=== PATIENT | female | born 1965 | race Two or more races ===

== ENCOUNTER → 2021-12-27 | Emergency (ER) | payer OTHER ==
[~2021-12-27] MED LIST: HYZAAR 100-121 UDTAB PO; NABUMETONE500 MG PO; PERCOCET 5/3251 TAB PO; SYNTHROID175 MCG PO; SYNTHROID200 MCG PO
== END | disposition home or self-care (01) ==
LOC: ER 11:25
DX: R00.2 Palpitations (principal); I10 Essential (primary) hypertension

== ENCOUNTER 2022-08-17 08:55 | Day surgery (SDC) | payer OTHER ==
[~2022-08-17] VITALS: Ht 165.1 cm; Wt 106.1 kg
[~2022-08-17 08:55] MED LIST changes: +IRBESARTAN-HCT1 EAC1 PO; +METFORM PO; +SYNTHROID137 MCG PO
== END 2022-08-17 16:30 | disposition home or self-care (01) ==
LOC: CIR.AMB 08:55
PROVIDERS: ATTEND Obstetrics & Gynecology Gynecology
DX: N85.8 Other specified noninflammatory disorders of uterus (principal); Z20.822 Contact with and (suspected) exposure to COVID-19; Z88.8 Allergy status to other drugs, medicaments and biological substances; Z88.6 Allergy status to analgesic agent; Z91.012 Allergy to eggs; Z91.040 Latex allergy status; I10 Essential (primary) hypertension; J45.909 Unspecified asthma, uncomplicated; G47.33 Obstructive sleep apnea (adult) (pediatric); E11.9 Type 2 diabetes mellitus without complications; E03.9 Hypothyroidism, unspecified

== ENCOUNTER 2022-11-08 09:28 | Emergency (ER) | payer OTHER ==
[~2022-11-08] VITALS: Ht 165.1 cm; Wt 105.2 kg
[2022-11-08] MEDS ORDERED: MEDROLPACK PO ×2 (11:01→11:05)
[2022-11-08] MEDS ORDERED: CYCLOBENZAPRINE10 MG PO ×2 (11:01→11:05)
== END 2022-11-08 13:14 | disposition home or self-care (01) ==
LOC: ER 09:28
DX: M62.830 Muscle spasm of back (principal); M54.9 Dorsalgia, unspecified; I10 Essential (primary) hypertension; E03.9 Hypothyroidism, unspecified; Z88.6 Allergy status to analgesic agent; Z91.012 Allergy to eggs; Z91.040 Latex allergy status